=== PATIENT | male | born 1975 | race Caucasian/White ===

== ENCOUNTER → 2020-12-31 14:49 | Outpatient (BNVA) | payer OTHER, SELFPAY | PROVIDERS: PCP Registered Nurse; Visit Provider Registered Nurse | DX: Z02.1 Encounter for pre-employment examination (principal) | CPT/HCPCS: 80307 ==

== ENCOUNTER 2021-04-21 10:36 | Outpatient (CLI) | payer OTHER, SELFPAY ==
--- NOTE | 2021-04-21 11:00 | MR_ITS ---
WS: [id number] MRI LUMBAR SPINE NONCONTRAST HISTORY: CHRONIC MIDLINE LOW BACK PAIN W/RT SIDED Sciatica; lumbar COMPARISON: None available. TECHNIQUE: Sagittal and axial multisequence imaging is submitted. Advanced degenerative changes in the cervical spine. Disc space narrowing with osteophytes. Encroachm ent upon the cervical canal at multiple levels. If this is symptomatic dedicated MRI cervical spine c an be obtained. Additional thoracic spondylitic disease without cord encroachment or compression. Normal posterior lumbar alignment. No fractures. Bilateral pedicle and lamina edema at L4 and L5. Inc reased T2 signal in the interspinous ligaments at L4-5. Disc spaces and vertebral body heights are well-preserved. Conus terminates normally at L1. L1-L2: Normal. L2-L3: Mild bilateral facet joint arthritis, LEFT greater than RIGHT. There is mild narrowing and enc roachment into the LEFT foramen. L3-L4: Mild ligamentum flavum and facet disease. No disc protrusion. Very mild narrowing of the ester anshul. L4-L5: Moderate asymmetric disc bulging with osteophytic ridging around the vertebral bodies. Disc en croachment upon the ventral thecal sac contacting the traversing L5 nerve roots. No displacement. Mod erate bilateral facet joint arthritis. Fluid in the facet joints bilaterally. Moderate RIGHT foramina l and mild LEFT foraminal stenosis. There is also encroachment into the subarticular recesses bilater ally. L5-S1: Diffuse annular disc bulging. Broad-based disc protrusion extends into the RIGHT foramen. Ther e is an extruded disc that extends cephalad from the disc space. This extruded fragment measures 1.2 cm in length and extends posterior to the RIGHT lateral L5 vertebral body. Transverse diameter of 1.0 cm. This extruded disc is completely effacing fat within the RIGHT L5-S1 foramen and contacting the L5 and S1 nerve roots. S1 nerve root on the RIGHT is being displaced posteriorly. Small amount of flu id in the facet joints. There is additional moderate LEFT foraminal narrowing due to combination of d isc, osteophyte and facet disease. Disc is slightly contacting the exiting L5 nerve root. MR/MR lumbar spine wo con* [id number] IMPRESSION: 1. Extruded disc from L5-S1 extends cephalad and posterior to L5 with encroach ment and contact on the RIGHT L5 and S1 nerve roots and displacement. This extr uded disc measures 1.2 x 1.0 cm. 2. Severe RIGHT foraminal stenosis at L5-S1 and moderate on the LEFT. 3. Bilateral marrow edema in the pedicles and lamina of L4 and L5 with edema i n the interspinous ligaments. 4. Mild LEFT foraminal narrowing at L2-3. 5. Disc encroachment upon the traversing L5 nerve roots without displacement a t L4-5. Moderate RIGHT and mild LEFT foraminal stenosis at L4-5 with mild encro achment into the subarticular recesses.
== END 2021-04-21 10:37 | disposition home or self-care (01) ==
PROVIDERS: Visit Provider Registered Nurse
DX: M54.41 Lumbago with sciatica, right side (principal); M54.16 Radiculopathy, lumbar region; M51.27 Other intervertebral disc displacement, lumbosacral region; M48.07 Spinal stenosis, lumbosacral region; R60.0 Localized edema
CPT/HCPCS: 72148

== ENCOUNTER → 2021-05-05 10:26 | Outpatient (BNVA) | payer OTHER, SELFPAY | PROVIDERS: Referring Provider Registered Nurse; Visit Provider Orthopaedic Surgery | DX: M47.816 Spondylosis without myelopathy or radiculopathy, lumbar region (principal); M47.812 Spondylosis without myelopathy or radiculopathy, cervical region | CPT/HCPCS: 72050; 72110 ==

== ENCOUNTER 2022-06-13 13:12 | Outpatient (CLI) | payer BC, MEDICAID, SELFPAY | END 2022-06-13 13:13 | disposition home or self-care (01) | LOC: RT 13:17 | PROVIDERS: PCP Registered Nurse; Visit Provider Physician Assistant | DX: F17.200 Nicotine dependence, unspecified, uncomplicated (principal) | CPT/HCPCS: 94010; 94726; 94729 ==